=== PATIENT | female | born 1970 | race Caucasian/White ===

== ENCOUNTER 2022-11-09 12:59 | Emergency (ER) | payer MEDICARE, MEDICAID ==
[~2022-11-09] VITALS: Ht 172.7 cm; Wt 147.3 kg
[~2022-11-09 12:59] MED LIST: ASPI-611 PO; ATOR40TA71 PO; BACL-11 PO; BUPR150T8 PO; BUSP15TA8 PO; DULO60CA60 PO; GLIP5TAB13 PO; LAMO100T65 PO; MECL-159 PO; OMEP20CA16 PO; PREG50CA PO; PROM25TA14 PO; TOLT4CAP PO; TOP100T PO
[2022-11-09 14:51] LABS: BASOPHILS # (AUTO) 0.1 X10'3 (0-0.2); BASOPHILS % (AUTO) 0.8 % (0-1); EOSINOPHILS # (AUTO) 0.4 X10'3 (0-0.9); EOSINOPHILS % (AUTO) 5.4 % (0-6); HEMATOCRIT 42.1 % (35.0-45.0); HEMOGLOBIN 13.6 g/dl (12.0-16.0); LYMPHOCYTES # (AUTO) 2.5 X10'3 (1.1-4.8); MEAN CORPUSCULAR HEMOGLOBIN 29.7 PG (27.0-31.0); MEAN CORPUSCULAR HGB CONC 32.2 g/dL (33.0-36.5); MEAN PLATELET VOLUME 9.8 FL (7.4-10.4); MONOCYTES # (AUTO) 0.5 X10'3 (0-0.9); MONOCYTES % (AUTO) 6.4 % (2-12); NEUTROPHILS # (AUTO) 4.2 X10'3 (1.8-7.7); NEUTROPHILS % (AUTO) 54.4 % (42-75); PLATELET COUNT 225 X10'3 (140-440); RED BLOOD COUNT 4.58 X10'6 (4.20-5.60); RED CELL DISTRIBUTION WIDTH 14.3 % (11.5-14.5); WHITE BLOOD COUNT 7.7 X10'3 (4.5-11.0)
[2022-11-09 15:14] LABS: ALANINE AMINOTRANSFERASE 24 U/L (12-78); ALBUMIN 3.5 G/DL (3.4-5.0); ALBUMIN/GLOBULIN RATIO 0.9 (1.1-1.5); ALKALINE PHOSPHATASE 155 IU/L (46-116); ANION GAP 5 (8-16); ASPARTATE AMINO TRANSFERASE 21 U/L (10-37); BILIRUBIN,TOTAL 0.3 MG/DL (0.1-1.0); BLOOD UREA NITROGEN 12 MG/DL (7-18); BUN/CREATININE RATIO 14.5 (6.6-38.0); CHLORIDE 107 MMOL/L (99-107); CREATININE 0.83 MG/DL (0.40-0.90); GLUCOSE 116 MG/DL (70-104); POTASSIUM 3.8 MMOL/L (3.5-5.1); SODIUM 141 MMOL/L (135-145); TOTAL CARBON DIOXIDE 28.7 MMOL/L (24-32); TOTAL PROTEIN 7.3 G/DL (6.4-8.2); eGFR 72 ML/MIN
--- NOTE | 2022-11-09 22:30 | NUR ---
Pt wants to go to [facility] because she "can't do it at home." Pt has [facility] and has services that come to her. She has a hospital bed on order. She is able to iterate to me exactly how 'the system' works to get all of the items in her home. And is working on getting this all done, that it takes time Pt states she has PT coming to her home weekly.
--- NOTE | 2022-11-10 00:28 | NUR ---
Did call [facility] earlier but they haven't called me back. Pt is sure it was/is [facility] and so that is whom I left the message with.
--- NOTE | 2022-11-10 07:02 | NUR ---
report from demetrio galarza for continuation of care. pt is sleeping in positon of comfort withresp even unlabored.
[2022-11-10 07:03] VITALS: BP 103/64
--- NOTE | 2022-11-10 09:24 | NUR ---
Spoke with Rosanna, from case management, who stated that she would look into the patients case and have social work come down to speak with her.
--- NOTE | 2022-11-10 13:36 | NUR ---
report called to banner contact was román for continuation of care.
--- NOTE | 2022-11-10 15:37 | NUR ---
pt stated she may have had bm. pt cleaned dried and replaced purwik
== END 2022-11-10 16:05 ==
LOC: ER 13:00
DX: R62.7 Adult failure to thrive (principal); Z20.822 Contact with and (suspected) exposure to COVID-19; R06.02 Shortness of breath; R42 Dizziness and giddiness; Z98.890 Other specified postprocedural states; Z60.2 Problems related to living alone; Z88.5 Allergy status to narcotic agent; Z88.1 Allergy status to other antibiotic agents; Z88.8 Allergy status to other drugs, medicaments and biological substances; Z79.82 Long term (current) use of aspirin; Z79.899 Other long term (current) drug therapy
CPT/HCPCS: 36415; 71045; 80053; 83880; 84484; 85025; 87811; 93005; 99285

== ENCOUNTER 2024-04-28 12:36 | Emergency (ER) | payer MEDICARE, MEDICAID ==
[~2024-04-28] VITALS: Ht 172.7 cm; Wt 135.0 kg
[~2024-04-28 12:36] MED LIST changes: -GLIP5TAB13 PO; +GLIP5TAB23 PO; -MECL-159 PO; +MECL-302 PO
[2024-04-28 12:37] VITALS: TEMP 98
[2024-04-28] MEDS ORDERED: HYDR-3965 PO (15:14)
[2024-04-28 15:29] VITALS: BP 135/83; PULSE 81; RESP 16; O2SAT 100
== END 2024-04-28 15:49 | disposition home or self-care (01) ==
LOC: ER 12:36
DX: S62.91XA Unspecified fracture of right hand, initial encounter for closed fracture (principal); Z88.1 Allergy status to other antibiotic agents; Z88.5 Allergy status to narcotic agent; X58.XXXA Exposure to other specified factors, initial encounter; Y93.89 Activity, other specified; Y92.89 Other specified places as the place of occurrence of the external cause; Y99.8 Other external cause status
CPT/HCPCS: 73130; 73610; 73630; 99284; A4565